=== PATIENT | female | born 1985 | race African-American/Black ===

== ENCOUNTER 2019-03-28 17:40 | Emergency (ER) | payer MEDICAID, OTHER ==
[~2019-03-28] VITALS: Ht 170.2 cm; Wt 72.6 kg
[2019-03-28 18:12] VITALS: BP 107/65
[2019-03-28] MEDS ORDERED: NEOMYCIN-BACITRACIN-POLYM UNITDOSE PKG TOP OINT TOP ONE (21:00)
[2019-03-28] MEDS ORDERED: ACETAMINOPHEN/CODEINE#3 (300/30mg) TAB PO ONE (21:00)
== END 2019-03-28 21:23 | disposition home or self-care (01) ==
LOC: ER 17:53
DX: S60.221A Contusion of right hand, initial encounter (principal); W22.8XXA Striking against or struck by other objects, initial encounter; Y93.89 Activity, other specified; Y99.8 Other external cause status; Y92.89 Other specified places as the place of occurrence of the external cause
CPT/HCPCS: 29125; 73130

== ENCOUNTER 2021-03-21 04:23 | Emergency (ER) | payer MEDICAID ==
[~2021-03-21] VITALS: Ht 170.2 cm; Wt 71.7 kg
[2021-03-21 04:23] VITALS: BP 114/70
[2021-03-21] MEDS ORDERED: cefTRIAXone SOD 1,000 MG VL IM ONE (05:15)
[2021-03-21] MEDS ORDERED: KETOROLAC TROMETH 60MG/2ML VIAL IM ONE (05:15)
[2021-03-21] MEDS ORDERED: ACETAMINOPHEN/CODEINE#3 (300/30mg) TAB PO ONE (05:30)
[2021-03-21] MEDS ORDERED: LIDOCAINE VISCOUS 2% 15ML UD PO ONE (05:30)
== END 2021-03-21 06:12 | disposition home or self-care (01) ==
LOC: ER 04:23
DX: K02.9 Dental caries, unspecified (principal); K03.81 Cracked tooth; M27.2 Inflammatory conditions of jaws; X58.XXXA Exposure to other specified factors, initial encounter; Y93.89 Activity, other specified; Y92.89 Other specified places as the place of occurrence of the external cause; Y99.8 Other external cause status
CPT/HCPCS: 70486